=== PATIENT | female | born 1970 | race Caucasian/White ===

== ENCOUNTER 2019-02-17 10:18 | Emergency (ER) | payer MEDICAID | END 2019-02-17 11:19 | disposition home or self-care (01) | LOC: ED 10:18 ==

== ENCOUNTER 2020-01-20 09:41 | Day surgery (SDC) | payer OTHER ==
[2020-01-20] MEDS ORDERED: Depo-Medrol 40 MG/ML IM ONE (09:42)
[2020-01-20] MEDS ORDERED: LIDOCAINE HCL 2% 100 MG/5 ML IJ ONE (09:42)
[2020-01-20] MEDS ORDERED: DIPRIVAN 200 MG/20 ML IV ONE (10:44)
[2020-01-20] MEDS ORDERED: Ketamine HCl 50 MG/ML ONE (10:44)
--- NOTE | 2020-01-20 12:12 | XRAY ---
Indication: Left L3-S1 MBB. Intraoperative fluoroscopy was provided for 12 seconds. Single digital spot image submitted for interpretation demonstrates posterior needle tips projecting over the expected course of the left L3-S1 nerve roots. Correlate with intraoperative findings/report.
--- NOTE | 2020-01-20 13:17 | XRAY ---
12 seconds fluoroscopy time in surgery for left L3-S1 MBB.
[2020-01-20] MEDS ORDERED: Lactated Ringers 1,000 ML IV ONE (15:49)
== END 2020-01-20 11:10 | disposition home or self-care (01) ==
LOC: SDC-PAIN 09:41
PROVIDERS: ATTEND Psychiatry & Neurology Pain Medicine
DX: M47.816 Spondylosis without myelopathy or radiculopathy, lumbar region (principal); I10 Essential (primary) hypertension; Z79.899 Other long term (current) drug therapy
CPT/HCPCS: 20552; 72020; 77002; 84703; J1030; J2704